=== PATIENT | male | born 1950 | race Caucasian/White ===

== ENCOUNTER 2021-07-27 12:53 | Observation (INO) | payer MEDICARE, SELFPAY ==
[2021-07-27] VITALS (9 sets, daily range): BP systolic 125–189; BP diastolic 67–95; PULSE 51–63; RESP 16–21; TEMP 36.4–37; O2SAT 97–100; BMI 22.3
--- NOTE | 2021-07-27 13:05 | ED_ITS ---
HPI - Chest Pain General: Chief Complaint: Chest Pain Stated Complaint: CHEST PAIN Time Seen by Provider: 07/27/21 13:04 History of Present Illness: Mr. Perea is a 71-year-old gentleman with history of hypertension who presents to the emergency department due to chest discomfort and generalized symptoms. He reports for the past few weeks he has had abdominal pain in the epigastric region associated with nausea and decreased p.o. intake. He has generalized illness which is moderate in intensity. Additionally over the past few days he has had chest discomfort which is left a nterior chest with no radiation to left arm. He is noted to be more weak and clammy than baseline. Denies history of similar frequently. Denies history of cardiac evaluation. Overall the course of symptoms has been worsening. No other specific changes in health, exacerbating, or alleviating factors identified. Onset (ago): day(s) Timing of current episode: episodic, increasing and still present Onset: during rest Pain location: substernal and left chest Pain radiation: left arm Severity: moderate Quality: aching Relieving factors: nothing Exacerbating factors: nothing Associated symptoms: Reports abdominal pain, diaphoresis and nausea Review of Systems General: Reports: 10 or more systems reviewed and unremarkable except in HPI and below Const: Reports: diaphoresis GI: Reports: abdominal pain and nausea PFS ED PFSH: Medical History HTN (hypertension) Surgical History History of appendectomy Social History Smoking and tobacco status: former smoker Physical Exam Const: COMMON NORMALS: alert GENERAL APPEARANCE: cooperative, well developed and ill appearing (somewhat) HENMT: COMMON NORMALS: normocephalic and atraumatic HEAD & SCALP: normocephalic and atraumatic Eye: COMMON NORMALS: conjunctivae normal CONJUNCTIVA: Yes conjunctivae normal SCLERA: sclerae normal Neck/C-Spine: COMMON NORMALS: supple GENERAL: Yes trachea midline Resp: COMMON NORMALS: normal respiratory effort and clear to auscultation bilaterally EFFORT & INSPECTION: Yes able to speak in complete sentences AUSCULTATION: clear to auscultation bilaterally Cardio: COMMON NORMALS: regular rate and regular rhythm RATE: regular rate RHYTHM: regular rhythm GI: COMMON NORMALS: Soft to palpation PALPATION: Yes Soft to palpation, Yes Tenderness to palpation present (GI), No Guarding due to palpation present (GI), No Rigid due to palpation and No Rebound tenderness present PERCUSSION: normal to percussion Extremity: GENERAL: Yes normal exam except as noted and No edema Neuro: COMMON NORMALS: moves all extremities SENSORIUM/ORIENTATION: Yes alert and No Orientation impaired Psych: COMMON NORMALS: mental status grossly normal and Normal thought process present THOUGHT PROCESS: Normal thought process present Course ED course: - Patient was seen and evaluated by me at bedside - Patient placed on cardiac monitors, IV access obtained - Initial evaluation notable for exam as above - Labs and xrays personally interpreted by me. EKGs from 1314 and 1513 personally interpreted by me. Sinus rhythm with no STEMI. - Labs notable for no leukocytosis, normal hemoglobin. Metabolic panel with mild hyponatremia. Delta troponin negative. Viral studies negative. - Imaging notable for no lobar consolidation or pneumothorax. No obvious cause of patient's symptoms identified on CT imaging. - Upon serial reexamination after treatment the patient was similar - Based on patient history, evaluation, and testing as interpreted the most likely cause of the patient's condition is chest pain of uncertain etiology - The results of ED evaluation were discussed with the patient including possible disposition options. Patient is moderate risk by heart score and uncomfortable with discharge and therefore will be admitted with explanation of stress test not occurring until Friday. - Admitting service was contacted and Dr Rutledge with the hospitalist service agreed to admit the patient - Patient was admitted without further deterioration or significant events. Note: Click bubbles or prepopulated davis in note writing are used for assistance with data collection and billing and are inherently more limited than narrative and other text portions of this note. Please use narrative for additional clinical history and defer to narrative/free test for any case of contradictory information. If information appears in only free text or click bubble it should be considered present or absent as reported. Please contact note software writer for clarifications of clinical information or contradictory information. MDM is a brief summary, contradictory or erroneous seeming information should be clarified and full note should be reviewed. Vital Signs: Vital signs: Vital Signs Temperature 98.0 F 07/30/21 00:00 Pulse Rate 58 L 07/30/21 00:00 Respiratory Rate 16 07/30/21 00:00 Blood Pressure 153/78 07/30/21 00:00 Pulse Oximetry 98 07/30/21 00:00 MDM - Chest Pain Medical Decision Making 71-year-old gentleman with no cardiac history presenting with chest pain and associated generalized symptoms. No clear etiology identified on the ED evaluation. Patient moderate risk by heart score and admitted after discussion of possible disposition options for further cardiac testing Medical Records I reviewed the patient's medical records. Lab Data I reviewed the patient's lab results. : 07/29/21 05:00 07/29/21 05:00 Radiology Impressions Chest X-Ray 07/27/21 13:16 IMPRESSION: 1. No pulmonary mass or pneumonia. 2. Curvilinear LEFT apical pleural calcification. Chest/Abdomen/Pelvis CT 07/27/21 14:37 IMPRESSION: 1. No acute pulmonary infiltrates. 2. Several subcentimeter noncalcified pulmonary nodules described above. Recommend 6 month follow-up. 3. Mild diffuse fatty infiltration of the liver. 4. Sigmoid diverticulosis. No evidence of acute diverticulitis. 5. Tiny fat-containing umbilical hernia. 6. No acute findings in the abdomen or pelvis. 7. 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 Laboratory Results WBC 4.0 10^3/uL (4.0-10.0) 07/28/21 05:20 RBC 3.99 10^6/uL (4.1-5.3) L 07/28/21 05:20 Hgb 12.8 g/dL (11.7-16.6) 07/28/21 05:20 Hct 37.9 % (42.0-52.0) L 07/28/21 05:20 MCV 95.0 fl (80-94) H 07/28/21 05:20 MCH 32.1 pg (28.0-34.0) 07/28/21 05:20 MCHC 33.8 g/dL (30.0-36.0) 07/28/21 05:20 RDW 11.8 % (12.1-15.1) L 07/28/21 05:20 Plt Count 165 10^3/cmm (130-400) 07/28/21 05:20 MPV 11.1 fL (7.4-10.4) H 07/28/21 05:20 Neut % (Auto) 46.1 % 07/28/21 05:20 Lymph % (Auto) 35.6 % 07/28/21 05:20 [place] % (Auto) 13.4 % 07/28/21 05:20 Eos % (Auto) 3.7 % 07/28/21 05:20 Baso % (Auto) 1.0 % 07/28/21 05:20 Neut # (Auto) 1.85 10^3/uL (1.8-7.7) 07/28/21 05:20 Lymph # (Auto) 1.4 10^3/uL (0.8-4.8) 07/28/21 05:20 [place] # (Auto) 0.5 10^3/uL (0.2-0.9) 07/28/21 05:20 Eos # (Auto) 0.2 10^3/uL (0.0-0.8) 07/28/21 05:20 Baso # (Auto) 0.0 10^3/uL (0.0-0.1) 07/28/21 05:20 Nucleated RBC % (auto) 0 % 07/28/21 05:20 Nucleated RBCs # 0.0 /100WBC 07/28/21 05:20 PT 13.90 SECONDS (12.1-14.9) 07/27/21 13:45 INR 1.04 (0.8-1.2) 07/27/21 13:45 APTT 25.5 SECONDS (23.9-36.7) 07/27/21 13:45 D-Dimer <= 0.27 ug/mIFEU (0-0.59) 07/27/21 13:45 Sodium 132 mmol/L (136-145) L 07/28/21 05:20 Potassium 3.9 mmol/L (3.5-5.1) 07/28/21 05:20 Chloride 100 mmol/L (98-107) 07/28/21 05:20 Carbon Dioxide 22 mmol/L (22-29) 07/28/21 05:20 Anion Gap 13.9 (5-19) 07/28/21 05:20 BUN 17 mg/dL (8-23) 07/28/21 05:20 Creatinine 0.8 mg/dL (0.7-1.2) 07/28/21 05:20 GFR Calculation Not Reportable 07/28/21 05:20 Glucose 90 mg/dL (65-115) 07/28/21 05:20 Calculated Osmolality 275 mOsm/kg (285-295) L 07/28/21 05:20 Calcium 8.7 mg/dL (8.5-10.5) 07/28/21 05:20 Total Bilirubin 0.5 mg/dL (0.15-1.2) 07/27/21 13:02 AST 15 U/L (0-40) 07/27/21 13:02 ALT 14 U/L (0-41) 07/27/21 13:02 Alkaline Phosphatase 64 IU/L (40-130) 07/27/21 13:02 Troponin T Baseline 10 ng/L (0-15) 07/27/21 13:02 Troponin T 120 Minute 9.56 ng/L (0-15) 07/27/21 15:37 Delta Troponin T -0.44 ABS# (0-10) L 07/27/21 15:37 Troponin T Hi Sens 6Hr 10.41 ng/L (0-15) 07/27/21 19:09 Troponin T Hi Sens 6Hr Delta 0.41 ng/L (0-12) 07/27/21 19:09 NT-Pro-B Natriuret Pep 101 pg/mL (0-125) 07/27/21 13:02 Total Protein 6.8 g/dL (6.6-8.7) 07/27/21 13:02 Albumin 4.2 g/dL (3.5-5.2) 07/27/21 13:02 Globulin 2.6 g/dL (1.3-4.6) 07/27/21 13:02 Triglycerides 84 mg/dL (0-150) 07/28/21 05:20 Cholesterol 163 mg/dL (0-200) 07/28/21 05:20 LDL Cholesterol, Calc 112 mg/dL (50-129) 07/28/21 05:20 HDL Cholesterol 34 mg/dL (60-100) L 07/28/21 05:20 LDL/HDL Ratio 3.29 RATIO (0.00-3.22) H 07/28/21 05:20 Cholesterol/HDL Ratio 4.79 mg/dL (1.0-5.00) 07/28/21 05:20 Lipase 29 U/L (13-60) 07/27/21 13:02 TSH 1.27 uIU/mL (0.27-4.20) 07/28/21 05:20 Urine Color Yellow (Yellow) 07/28/21 09:50 Urine Appearance Clear (CLEAR) 07/28/21 09:50 Urine pH 5 (5-7) 07/28/21 09:50 Ur Specific [place] 1.020 (1.005-1.030) 07/28/21 09:50 Urine Protein Neg (Negative) 07/28/21 09:50 Urine Glucose (UA) Norm (Normal) 07/28/21 09:50 Urine Ketones 1+ (Negative) H 07/28/21 09:50 Urine Blood Neg (Negative) 07/28/21 09:50 Urine Nitrate Negative (Negative) 07/28/21 09:50 Urine Bilirubin Neg (Negative) 07/28/21 09:50 Urine Urobilinogen Norm mg/dL (Negative) 07/28/21 09:50 Ur Leukocyte Esterase Negative (Negative) 07/28/21 09:50 Influenza Type A Ag Negative (Negative) 07/27/21 13:53 Influenza Type B Ag Negative (Negative) 07/27/21 13:53 Discharge Plan Discharge Patient Disposition: Placed in Observation Admit Provider: Cordell Rutledge Clinical Impression: Chest pain Coding Level of Care Code ED Submarine Cable Equipment Technician for Angelo Fwd Exam Comprehensive
--- NOTE | 2021-07-27 13:16 | ECG_ITS ---
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 Measurements Intervals [place] Rate: 49 P: 54 AR: 166 QRS: 64 QRSD: 90 T: 67 QT: 415 QTc: 375 Interpretive Statements SINUS BRADYCARDIA No previous ECG available for comparison Electronically Signed On 07-27-2021 16:01:12 CDT by Don Guillaume M.D. [id number]
--- NOTE | 2021-07-27 13:16 | XR_ITS ---
WS: [id number] PORTABLE CHEST HISTORY: chest pain COMPARISON: None available. Patient slightly rotated to the RIGHT. Lungs are clear and well expanded. No pleural effusion. There is pleural calcification at the LEFT ap ex. Cardiac size: Normal. Mediastinum/Aorta: Normal mediastinum. No osseous abnormality seen. XR/XR chest 1V portable [id number] IMPRESSION: 1. No pulmonary mass or pneumonia. 2. Curvilinear LEFT apical pleural calcification.
[2021-07-27 13:25] LABS: Basophils % 0.6 %; Eosinophils # 0.1 10^3/uL (0.0-0.8); Hematocrit 39.8 % (42.0-52.0); Hemoglobin 13.6 g/dL (11.7-16.6); Lymphocytes # 1.1 10^3/uL (0.8-4.8); Lymphocytes % 23.2 %; Mean Corpuscular HGB Conc 34.2 g/dL (30.0-36.0); Mean Corpuscular Hemoglobin 32.2 pg (28.0-34.0); Mean Corpuscular Volume 94.1 fl (80-94); Monocytes # 0.7 10^3/uL (0.2-0.9); Monocytes % 13.2 %; Neutrophils # 2.98 10^3/uL (1.8-7.7); Neutrophils % 60.8 %; Nucleated Red Blood Cells % 0 %; Platelet Count 199 10^3/cmm (130-400); Red Blood Count 4.23 10^6/uL (4.1-5.3); Red Cell Distribution Width 11.9 % (12.1-15.1); White Blood Count 4.9 10^3/uL (4.0-10.0)
[2021-07-27 13:44] LABS: Troponin(5th) Baseline 10 ng/L (0-15)
[2021-07-27 13:54] LABS: Alanine Aminotransferase 14 U/L (0-41); Albumin Level 4.2 g/dL (3.5-5.2); Alkaline Phosphatase 64 IU/L (40-130); Anion Gap 14.2 (5-19); Aspartate Amino Transferase 15 U/L (0-40); Blood Urea Nitrogen 14 mg/dL (8-23); Calcium 9.3 mg/dL (8.5-10.5); Carbon Dioxide 23 mmol/L (22-29); Chloride 99 mmol/L (98-107); Globulin 2.6 g/dL (1.3-4.6); Glucose 96 mg/dL (65-115); Lipase 29 U/L (13-60); NT Pro B Type Natriuretic Pept 101 pg/mL (0-125); Osmolality Calculated 274 mOsm/kg (285-295); Potassium 4.2 mmol/L (3.5-5.1); Sodium 132 mmol/L (136-145); Total Bilirubin 0.5 mg/dL (0.15-1.2); Total Protein 6.8 g/dL (6.6-8.7)
[2021-07-27 14:22] LABS: Influenza A by IFA Negative (Negative); Influenza B by IFA Negative (Negative)
[2021-07-27 14:31] LABS: INR 1.04 (0.8-1.2)
[2021-07-27 14:32] LABS: Partial Thromboplastin Time 25.5 SECONDS (23.9-36.7)
[2021-07-27 14:35] LABS: D Dimer <= 0.27 ug/mIFEU (0-0.59)
--- NOTE | 2021-07-27 14:37 | CT_ITS ---
WS: [id number] CT CHEST, ABDOMEN, AND PELVIS TECHNIQUE: Contrast-enhanced CT of the chest, abdomen, and pelvis with coronal and sagittal reformatt ed images. CLINICAL INFORMATION: left chest pain, sob, abdominal pain, n/v COMPARISON: None. DLP: 1125.[address] scans at [facility] use at least one of these dose optimization techniques: automated e xposure control; mA and/or kV adjustment per patient size (includes targeted exams where dose is matc hed to clinical indication); or iterative reconstruction. CT CHEST: Moderate chronic emphysematous changes. No acute pulmonary infiltrates. No focal pneumonia or pleural fluid. Fibrosis in the lung apices. RIGHT basilar atelectasis. 2. small hazy noncalcified pulmonary nodules RIGHT upper lobe measuring 4 to 6 mm. Subpleural nodule LEFT lower lobe measuring 5 mm. Additional noncalcified pulmonary nodule LEFT upper lobe measuring 5 mm. Pleural calcification and LEFT lung apex. Normal caliber thoracic aorta. Aortic calcification. Coronary calcification. No mediastinal or hilar lymphadenopathy. No axillary lymphadenopathy. Normal thoracic spine. CT ABDOMEN AND PELVIS: Mild diffuse fatty infiltration of the liver. Normal portal vein and splenic vein. Small RIGHT hepati c cyst. Normal GE junction. Pancreas appears normal. Normal portal vein and splenic vein. Normal sple en. Adrenal glands are normal. Normal renal parenchymal enhancement. No hydronephrosis. Small LEFT re nal cyst lower pole LEFT kidney. Normal caliber abdominal aorta. Moderate aortic calcification. Sigmoid diverticulosis. No evidence of acute diverticulitis. No evidence of high-grade small or large bowel obstruction. Normal Advanced arthritis LEFT hip with subchondral cystic change and qcwm-ya-pthw articulation. CT/CT chest abd pel w con* IMPRESSION: 1. No acute pulmonary infiltrates. 2. Several subcentimeter noncalcified pulmonary nodules described above. Recom mend 6 month follow-up. 3. Mild diffuse fatty infiltration of the liver. 4. Sigmoid diverticulosis. No evidence of acute diverticulitis. 5. Tiny fat-containing umbilical hernia. 6. No acute findings in the abdomen or pelvis. 7. 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
[2021-07-27] MEDS: iohexol 300 mg/mL 100 mL Btl IV (15:07)
--- NOTE | 2021-07-27 15:16 | ECG_ITS ---
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 Measurements Intervals [place] Rate: 55 P: 52 RI: 183 QRS: 66 QRSD: 83 T: 56 QT: 406 QTc: 390 Interpretive Statements SINUS BRADYCARDIA Compared to ECG 07/27/2021 13:14:41 No significant changes Electronically Signed On 07-27-2021 16:05:35 CDT by Don Guillaume M.D. [id number]
[2021-07-27 16:05] LABS: Troponin 5 2HR 9.56 ng/L (0-15)
[2021-07-27 16:18] LABS: Troponin 5 2HR Delta -0.44 ABS# (0-10)
--- NOTE | 2021-07-27 19:16 | ECG_ITS ---
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 Measurements Intervals [place] Rate: 54 P: 34 MD: 174 QRS: 49 QRSD: 89 T: 46 QT: 413 QTc: 391 Interpretive Statements SINUS BRADYCARDIA Compared to ECG 07/27/2021 15:13:57 No significant changes Electronically Signed On 07-27-2021 22:42:09 CDT by Don Guillaume M.D. [id number]
[2021-07-27] MEDS: sodium chloride 0.9% 1,000 ML 75 ML IV (19:26)
[2021-07-27] MEDS: enoxaparin 40 mg/0.4 mL Syringe SUBCUT (19:26)
[2021-07-27] MEDS: acetaminophen 325 mg Tablet 650 MG PO (19:33)
[2021-07-27 19:42] LABS: Troponin 5 6HR 10.41 ng/L (0-15)
[2021-07-27 19:46] LABS: Troponin 5 6HR Delta 0.41 ng/L (0-12)
[2021-07-27] MEDS: pantoprazole 40 mg SDV IVP (19:58)
--- NOTE | 2021-07-27 20:28 | PM.HP ---
Providers/Chief Complaint Admitting Physician: Cordell Rutledge MD Chief Complaint: CHEST PAIN History of Present Illness Vikash Perea is a 71 year old male with past medical history of hypertension came in with chief complaint of chest discomfort and generalized symptoms.He reports for the past few weeks he has had abdominal pain in the epigastric region associated with nausea and decreased p.o. intake.? He has generalized illness which is moderate in intensity.? Additionally over the past few days he has had chest discomfort which is left anterior chest with no radiation to left arm.? He is noted to be more weak and clammy than baseline.? Denies history of similar frequently.? Denies history of cardiac evaluation. He is also complaining of lately dark stool, abdominal bloating, increased urinary frequency. Upon arrival in the ER he was worked up for above-mentioned complaint: Pertinent imaging studies: C. T chest abd pel w con: 1.? No acute pulmonary infiltrates. 2.? Several subcentimeter noncalcified pulmonary nodules described above. Recommend 6 month follow-up. 3.? Mild diffuse fatty infiltration of the liver. 4.? Sigmoid diverticulosis. No evidence of acute diverticulitis. 5.? Tiny fat-containing umbilical hernia. 6.? No acute findings in the abdomen or pelvis. 7.? 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 EKG: Sinus bradycardia #Pertinent labs: WBC 4.9, H&H 13.6 / 39.8 , PLT : 199 , Serum sodium 132 serum potassium 4.2, BUN and serum creatinine 14 and 0.9 , lipase 29 Troponin trend:10,9,10, proBNP 101 , D-dimer negative Review of Systems General: Reports: 10 or more systems reviewed and unremarkable except in HPI and below Const: Denies: fever(s), chills, body aches, change in appetite or diaphoresis Card: Denies: edema, swelling of feet/ankles, dyspnea on exertion, orthopnea or leg pain with exertion Resp: Denies: dyspnea, productive cough, wheezing or pain on inspiration GI: Denies: nausea, vomiting, diarrhea or constipation : Denies: flank pain Musc: Denies: extremity pain or extremity swelling Neuro: Denies: headache(s), difficulty walking or confusion Medications/Allergies Home Medications Medication Instructions Recorded Confirmed Last Taken Type carvedilol 25 mg tablet (Coreg) 25 mg PO BID 04/12/1007/27/21 07/27/21 History gabapentin 300 mg capsule 300 mg PO TID 07/27/21 07/27/21 07/26/21 History glucosamine-chondroitin 250 mg-200 2 tab PO TID 07/27/21 07/27/21 07/26/21 History mg tablet (Osteo Bi-Flex) meloxicam 7.5 mg tablet 7.5 mg PO DAILY 07/27/21 07/27/21 07/26/21 History vrizdrkgcelw-vjx-cumbl acid-vit 1 tab PO DAILY 07/27/21 07/27/21 07/26/21 History K-lycop 400 mcg-20 mcg-370 mcg tablet (Men's 50 Plus Daily Formula) sertraline 100 mg tablet 100 mg PO DAILY 07/27/21 07/27/21 07/26/21 History Allergies Allergy/AdvReac Type Severity Reaction Status Date / Time No Known Allergies Allergy Verified 07/27/21 14:10 PFSH Acute PFSH: Medical History HTN (hypertension) Surgical History History of appendectomy Social History Smoking and tobacco status: former smoker Vitals/I&O/Wt Last Vital Signs Temp 97.5 F L 07/27/21 20:00 Pulse 56 L 07/27/21 20:00 Resp 18 07/27/21 20:00 BP 169/83 07/27/21 20:00 Pulse Ox 97 07/27/21 20:00 Weight last 48 hrs Weight 72.575 kg Physical Exam Const: COMMON NORMALS: patient oriented x3 HENMT: COMMON NORMALS: normocephalic and atraumatic HEAD & SCALP: normocephalic and atraumatic Eye: GENERAL EYE: appearance normal, both eyes and all related structures Chest: COMMONS NORMALS: normal inspection of the chest and normal palpation of entire chest wall CHEST: Yes Symmetrical chest wall rise Resp: COMMON NORMALS: normal respiratory effort, No retractions, No use of accessory muscles and clear to auscultation bilaterally EFFORT & INSPECTION: Yes symmetric chest movement AUSCULTATION: clear to auscultation bilaterally Cardio: COMMON NORMALS: regular rate, regular rhythm, S1 normal heart sound present, S2 normal heart sound present, No gallops present (Cardio), No murmurs present (Cardio), No rub (Cardio) and Peripheral pulses 2+ throughout RATE: regular rate RHYTHM: regular rhythm HEART SOUNDS: S1 normal heart sound present and S2 normal heart sound present PERIPHERAL PULSES: Peripheral pulses 2+ throughout GI: COMMON NORMALS: Normal to inspection, nondistended, normoactive bowel sounds present, No hepatosplenomegaly present and no masses AUSCULTATION: Yes normoactive bowel sounds PALPATION: Yes No hepatosplenomegaly present RECTAL EXAM: Yes deferred OTHER: Hypogastric tenderness, no rebound tenderness no guarding no rigidity Extremity: COMMON NORMALS: no clubbing, cyanosis or edema and no pedal edema Neuro: COMMON NORMALS: patient oriented x3 Data : 07/28/21 05:20 07/28/21 05:20 A&P Assessment and plan (1) Chest pain: Status: Acute (2) HTN (hypertension): Status: Acute Plan Assessment: #Chest pain: Likely noncardiac chest pain: Patient description of chest pain, is not typical for cardiac chest pain Troponin trend has been negative, EKG has showed sinus bradycardia, 2D echo: Telemetry monitoring Sublingual nitro as needed #Possible gastritis: Epigastric abdominal pain, dark stool, nausea, bloating. Continue Protonix 40 IV daily for now Maalox #Sinus bradycardia: EKG is showing sinus bradycardia Continue telemetry monitoring #Possible UTI: Patient has hypogastric tenderness, increased urinary frequency. Follow urinalysis ceftriaxone 1 g IV daily #Hypertension #CODE STATUS: Full code #DVT PPX: On Lovenox Attestations Medical Necessity Statement*: Patient needs to be in hospital for chest pain evaluation and work-up. Time Spent in Patient Care: Greater than 35 minutes (>than 50% of time spent in counselling and/or direct pt care on unit). Coding Level of Care Code Acute Teacher Physically Impaired for g Fwd Exam Comprehensive Diagnoses Chest pain R07.9 HTN (hypertension) I10
[2021-07-27] MEDS: cefTRIAXone 1,000 MG in sodium chloride 0.9% (plus) 50 ML 100 MG IV (21:24)
[2021-07-28] VITALS (9 sets, daily range): BP systolic 127–182; BP diastolic 68–90; PULSE 54–67; RESP 16–18; TEMP 36.5–37.1; O2SAT 95–98
--- NOTE | 2021-07-28 00:15 | USCV_ITS ---
Transthoracic Echo Vikash Perea Age: 71 Gender: M : 1950 Exam Date: 07/28/2021 01:39 Ordering Phys: Cordell Rutledge MD Technologist: Emerson Willis Exam Location[place] [facility] [place]ication: chest pain BP: 127 / 68 HR: 54 Rhythm: Sinus Technical Quality: Adequate MEASUREMENTS (Male / Female) Normal Values 2D ECHO LV Diastolic Diameter PLAX 2.3 cm 4.2 - 5.9 / 3.9 - 5.3 cm LV Systolic Diameter PLAX 1.4 cm IVS Diastolic Thickness 2.6 cm 0.6 - 1.0 / 0.6 - 0.9 cm IVS Systolic Thickness 2.2 cm LVPW Diastolic Thickness 1.1 cm 0.6 - 1.0 / 0.6 - 0.9 cm LVPW Systolic Thickness 1.8 cm LVOT Diameter 2.0 cm LV Ejection Fraction 2D Teich 69.9 % LV Ejection Fraction MOD 2C 67.7 % LV Ejection Fraction 2C AL 68.6 % LA Diameter 3.5 cm LA Width 3.9 cm LA Height 4.2 cm RA Width 3.1 cm RA Height 4.7 cm Aorta at Sinotubular Diameter 2.1 cm M-MODE Aortic Annulus Diameter 3.0 cm LA Ao Ratio MM 1.3 MV E Point Septal Separation 0.9 cm DOPPLER AV Peak Velocity 146.5 cm/s LVOT Peak Velocity 102.0 cm/s AV Area Cont Eq vti 2.6 cm squared AV Area Cont Eq pk 2.2 cm squared MV Area PHT 3.1 cm squared Mitral E to A Ratio 1.2 MV E' Velocity 42.6 cm/s Mitral E to MV E' Ratio 10.7 Mitral E to LV E' Lateral Ratio 9.3 Mitral E to LV E' Septal Ratio 12.7 Right Atrial Pressure 3.0 mmHg PV Peak Velocity 92.0 cm/s RV Acceleration Time 0.1 s RV Ejection Time 0.4 s RV AcT/ET 0.4 FINDINGS Left Ventricle Normal left ventricular size and systolic function, EF 68 %. Mild left ventricular hypertrophy. No regional wall motion abnormalities. Grade I/IV diastolic dysfunction (abnormal relaxation filling pattern), normal to mildly elevated filling pressures. Right Ventricle The right ventricle is normal in size and function. Right Atrium The right atrium is normal in size. Left Atrium Upper limit of normal size Mitral Valve Mild mitral annular calcification. Aortic Valve Thickened aortic valve. Tricuspid Valve No gross abnormalities noted Pulmonic Valve Pulmonic valve not well visualized. Pericardium Normal pericardium without effusion. Aorta Normal ascending aorta dimension. CONCLUSIONS Normal left ventricular size and systolic function, EF 68 %. Mild left ventricular hypertrophy. No regional wall motion abnormalities. Grade I/IV diastolic dysfunction (abnormal relaxation filling pattern), normal to mildly elevated filling pressures. Left atrium, upper limit of normal size Mild mitral annular calcification. Thickened aortic valve. There is no pericardial effusion. No previous study is available for comparison. Dr Xochilt Griffith MD FACC (Electronically Signed) Final Date: 28 July 2021 13:39 S
[2021-07-28 05:48] LABS: Eosinophils # 0.2 10^3/uL (0.0-0.8); Eosinophils % 3.7 %; Hematocrit 37.9 % (42.0-52.0); Hemoglobin 12.8 g/dL (11.7-16.6); Lymphocytes # 1.4 10^3/uL (0.8-4.8); Lymphocytes % 35.6 %; Mean Corpuscular HGB Conc 33.8 g/dL (30.0-36.0); Mean Corpuscular Hemoglobin 32.1 pg (28.0-34.0); Mean Platelet Volume 11.1 fL (7.4-10.4); Monocytes # 0.5 10^3/uL (0.2-0.9); Monocytes % 13.4 %; Neutrophils # 1.85 10^3/uL (1.8-7.7); Neutrophils % 46.1 %; Nucleated Red Blood Cells % 0 %; Platelet Count 165 10^3/cmm (130-400); Red Blood Count 3.99 10^6/uL (4.1-5.3); Red Cell Distribution Width 11.8 % (12.1-15.1)
[2021-07-28 06:06] LABS: Chol HDL Ratio 4.79 mg/dL (1.0-5.00); Cholesterol 163 mg/dL (0-200); HDL Cholesterol 34 mg/dL (60-100); LDL Cholesterol Calculated 112 mg/dL (50-129); LDL HDL Ratio 3.29 RATIO (0.00-3.22); Triglycerides 84 mg/dL (0-150)
[2021-07-28 06:16] LABS: Anion Gap 13.9 (5-19); Blood Urea Nitrogen 17 mg/dL (8-23); Calcium 8.7 mg/dL (8.5-10.5); Carbon Dioxide 22 mmol/L (22-29); Chloride 100 mmol/L (98-107); Glucose 90 mg/dL (65-115); Osmolality Calculated 275 mOsm/kg (285-295); Potassium 3.9 mmol/L (3.5-5.1); Sodium 132 mmol/L (136-145); Thyroid Stimulating Hormone 1.27 uIU/mL (0.27-4.20)
[2021-07-28] MEDS: sodium chloride 0.9% 1,000 ML 75 ML IV (09:43)
[2021-07-28 10:39] LABS: Add Urine Microscopic? NO; Charge for UA Resulting for Rev
[2021-07-28 10:49] LABS: Bilirubin Urine Neg (Negative); Blood Urine Neg (Negative); Glucose Urine UA Norm (Normal); Ketones Urine 1+ (Negative); Leukocyte Esterase Urine Negative (Negative); Nitrate Urine Negative (Negative); Protein Urine Neg (Negative); Urine Appearance Clear (CLEAR); Urine Color Yellow (Yellow); Urobilinogen Urine Norm (Negative); pH Urine 5 (5-7)
[2021-07-28] MEDS: amlodipine 5 mg Tablet PO (11:37)
--- NOTE | 2021-07-28 14:40 | P.PN_ITS ---
Subjective Subjective: Patient had another episode of chest pain left-sided, sharp lasted for about 30 seconds, resolved spontaneously. Continue to be in sinus bradycardia on telemetry, blood pressure is elevated: Will initiate amlodipine 5 mg p.o. daily. Medications: Medication Review Details: Generic Name Dose Route Start Last Admin Trade Name Freq PRN Reason Stop Dose Admin Acetaminophen 650 mg 07/27/21 18:33 07/27/21 19:33 Acetaminophen 32 5 Mg Tablet PO 650 mg Q6H PRN Administration Mild/Mod Pain Or Temp >/= 101 Amlodipine Besylat e 5 mg 07/28/21 10:45 07/28/21 11:37 Amlodipine 5 Mg Tablet PO 5 mg DAILY RONY Administration Enoxaparin Sodium 40 mg 07/27/21 18:45 07/27/21 19:26 Enoxaparin 40 Mg /0.4 Ml Syringe SUBCUT 40 mg Q24H RONY Administration Sodium Chloride 1,000 mls @ 75 ml s/hr 07/27/21 18:45 07/28/21 09:43 Sodium Chloride 0.9% IV 75 mls/hr .[id number] RONY Administration Ceftriaxone Sodium 1,000 mg/ 50 mls @ 100 mls/ hr 07/27/21 21:00 07/27/21 22:15 Sodium Chloride IV Infused Q24H RONY Infusion Protocol Pantoprazole Sodiu m 40 mg 07/27/21 18:45 07/27/21 19:58 Pantoprazole 40 Mg Sdv IVP 40 mg Q24H RONY Administration Vitals/I&O/Wt Last Vital Signs Temp 98.0 F 07/28/21 11:33 Pulse 57 L 07/28/21 11:33 Resp 18 07/28/21 11:33 BP 182/84 07/28/21 11:33 Pulse Ox 97 07/28/21 11:33 07/27/21 07/28/21 07/28/21 22:59 06:59 14:59 Intake Total 530 / 530 100 / 630 1240 / 1240 Output Total 0 / 0 500 / 500 Balance 530 / 530 100 / 630 740 / 740 Weight last 48 hrs Weight 72.575 kg Physical Exam Const: COMMON NORMALS: patient oriented x3 HENMT: COMMON NORMALS: normocephalic and atraumatic HEAD & SCALP: normocephalic and atraumatic Eye: GENERAL EYE: appearance normal, both eyes and all related structures Chest: COMMONS NORMALS: normal inspection of the chest and normal palpation of entire chest wall CHEST: Yes Symmetrical chest wall rise Resp: COMMON NORMALS: normal respiratory effort, No retractions, No use of accessory muscles and clear to auscultation bilaterally EFFORT & INSPECTION: Yes symmetric chest movement AUSCULTATION: clear to auscultation bilaterally Cardio: COMMON NORMALS: regular rate, regular rhythm, S1 normal heart sound present, S2 normal heart sound present, No gallops present (Cardio), No murmurs present (Cardio), No rub (Cardio) and Peripheral pulses 2+ throughout RATE: regular rate RHYTHM: regular rhythm HEART SOUNDS: S1 normal heart sound present and S2 normal heart sound present PERIPHERAL PULSES: Peripheral pulses 2+ throughout GI: COMMON NORMALS: Normal to inspection, nondistended, normoactive bowel sounds present, No hepatosplenomegaly present and no masses AUSCULTATION: Yes normoactive bowel sounds PALPATION: Yes No hepatosplenomegaly present RECTAL EXAM: Yes deferred OTHER: Hypogastric tenderness, no rebound tenderness no guarding no rigidity Extremity: COMMON NORMALS: no clubbing, cyanosis or edema and no pedal edema Neuro: COMMON NORMALS: patient oriented x3 Data : 07/28/21 05:20 07/28/21 05:20 A&P Assessment and plan (1) Chest pain: Status: Acute (2) HTN (hypertension): Status: Acute Plan Assessment: #Chest pain: Likely noncardiac chest pain: Patient description of chest pain, is not typical for cardiac chest pain Troponin trend has been negative, EKG has showed sinus bradycardia, 2D echo: Stress test on Friday Telemetry monitoring Sublingual nitro as needed #Possible gastritis/PUD Epigastric abdominal pain, dark stool, nausea, bloating. FOBT Continue Protonix 40 IV daily for now Maalox Patient will need outpatient EGD plus colonoscopy.Patient is also due for age- appropriate colonoscopy screening. #Sinus bradycardia: EKG is showing sinus bradycardia Continue telemetry monitoring #Hypertension: Patient is on carvedilol at home, will continue to hold carvedilol as he has sinus bradycardia. Started amlodipine 5 mg p.o. daily #CODE STATUS: Full code #DVT PPX: On Lovenox Attestations Medical Necessity Statement*: Patient is to be in hospital for chest pain management and work-up, awaiting stress test on Friday. Time Spent in Patient Care: Greater than 35 minutes (>than 50% of time spent in counselling and/or direct pt care on unit) . Coding Level of Care Code Acute Occupational Psychologist for Angelo Gorman Diagnoses Chest pain R07.9 HTN (hypertension) I10
[2021-07-28] MEDS: pantoprazole 40 mg SDV IVP (18:08)
[2021-07-28] MEDS: enoxaparin 40 mg/0.4 mL Syringe SUBCUT (18:08)
[2021-07-29] MEDS: sodium chloride 0.9% 1,000 ML 75 ML IV (03:16)
[2021-07-29 04:00] VITALS: BP 166/83; PULSE 61; RESP 16; TEMP 36.9; O2SAT 96
[2021-07-29 05:33] LABS: Basophils % 0.9 %; Eosinophils # 0.1 10^3/uL (0.0-0.8); Eosinophils % 2.8 %; Hematocrit 40.3 % (42.0-52.0); Hemoglobin 13.5 g/dL (11.7-16.6); Lymphocytes # 1.4 10^3/uL (0.8-4.8); Lymphocytes % 32.9 %; Mean Corpuscular HGB Conc 33.5 g/dL (30.0-36.0); Mean Corpuscular Hemoglobin 31.9 pg (28.0-34.0); Mean Corpuscular Volume 95.3 fl (80-94); Mean Platelet Volume 10.7 fL (7.4-10.4); Monocytes # 0.6 10^3/uL (0.2-0.9); Monocytes % 13.6 %; Neutrophils # 2.11 10^3/uL (1.8-7.7); Neutrophils % 49.8 %; Nucleated Red Blood Cells % 0 %; Platelet Count 165 10^3/cmm (130-400); Red Blood Count 4.23 10^6/uL (4.1-5.3); Red Cell Distribution Width 11.7 % (12.1-15.1); White Blood Count 4.3 10^3/uL (4.0-10.0)
[2021-07-29 05:37] VITALS: PULSE 54
[2021-07-29 06:02] LABS: Anion Gap 13.6 (5-19); Blood Urea Nitrogen 10 mg/dL (8-23); Carbon Dioxide 24 mmol/L (22-29); Chloride 101 mmol/L (98-107); Glucose 102 mg/dL (65-115); Osmolality Calculated 279 mOsm/kg (285-295); Potassium 3.6 mmol/L (3.5-5.1); Sodium 135 mmol/L (136-145)
[2021-07-29 07:56] VITALS: BP 166/84; PULSE 56; RESP 12; TEMP 37.1; O2SAT 97
[2021-07-29] MEDS: amlodipine 5 mg Tablet PO ×2 (08:29→17:12)
--- NOTE | 2021-07-29 13:11 | ECG_ITS ---
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 Interpretive Statements NAME OF STUDY: LEXISCAN SESTAMIBI STRESS TEST INDICATION: [Chest Pain] Procedure: At the baseline, the blood pressure was 133/81 mmHg with a heart rate of 56 bpm. The electrocardiogram showed sinus bradycardia, normal axis with normal ST and T's. The Lexiscan was infused over a period of 20 seconds. A total of 0.4 mg of Lexiscan was infused. The stress phase was continued for a total of 5 minutes. Heart rate was at the end of stress phase was 47 bpm and a blood pressure of 108/59 mmHg. The EKG at the peak infusion revealed since normal sinus rhythm with no significant ST-T wave changes. Sestamibi was injected 20 seconds after the Lexiscan infusion. Blood pressure at the end of recovery phase was 116/68 mmHg with a heart rate of 61bpm. Conclusion: 1. Normal EKG response to Lexiscan infusion 2. No Lexiscan induced chest pain or cardiac arrhythmia. 3. Normal blood pressure and heart rate response. 4. Sestamibi/sestamibi perfusion scan pending; see separate report. Electronically Signed On 09-02-2021 21:06:08 CDT by Don Guillaume M.D. [id number]
--- NOTE | 2021-07-29 13:11 | P.PN_ITS ---
Subjective Subjective: Patient denies any similar chest pain overnight , though he continues to complain of some lower abdominal pain. No other acute events. Medications: Medication Review Details: Generic Name Dose Route Start Last Admin Trade Name Maki PRN Reason Stop Dose Admin Acetaminophen 650 mg 07/27/21 18:33 07/27/21 19:33 Acetaminophen 32 5 Mg Tablet PO 650 mg Q6H PRN Administration Mild/Mod Pain Or Temp >/= 101 Amlodipine Besylat e 5 mg 07/28/21 10:45 07/28/21 11:37 Amlodipine 5 Mg Tablet PO 5 mg DAILY RONY Administration Enoxaparin Sodium 40 mg 07/27/21 18:45 07/27/21 19:26 Enoxaparin 40 Mg /0.4 Ml Syringe SUBCUT 40 mg Q24H RONY Administration Sodium Chloride 1,000 mls @ 75 ml s/hr 07/27/21 18:45 07/28/21 09:43 Sodium Chloride 0.9% IV 75 mls/hr .[id number] RONY Administration Ceftriaxone Sodium 1,000 mg/ 50 mls @ 100 mls/ hr 07/27/21 21:00 07/27/21 22:15 Sodium Chloride IV Infused Q24H RONY Infusion Protocol Pantoprazole Sodiu m 40 mg 07/27/21 18:45 07/27/21 19:58 Pantoprazole 40 Mg Sdv IVP 40 mg Q24H RONY Administration Vitals/I&O/Wt Last Vital Signs Temp 98.7 F 07/29/21 07:56 Pulse 56 L 07/29/21 07:56 Resp 12 07/29/21 07:56 BP 166/84 07/29/21 07:56 Pulse Ox 97 07/29/21 07:56 07/28/21 07/29/21 07/29/21 22:59 06:59 14:59 Intake Total 480 / 1720 1000 / 2720 Balance 480 / 1220 1000 / 2220 Physical Exam Const: COMMON NORMALS: patient oriented x3 HENMT: COMMON NORMALS: normocephalic and atraumatic HEAD & SCALP: normocephalic and atraumatic Eye: GENERAL EYE: appearance normal, both eyes and all related structures Chest: COMMONS NORMALS: normal inspection of the chest and normal palpation of entire chest wall CHEST: Yes Symmetrical chest wall rise Resp: COMMON NORMALS: normal respiratory effort, No retractions, No use of accessory muscles and clear to auscultation bilaterally EFFORT & INSPECTION: Yes symmetric chest movement AUSCULTATION: clear to auscultation bilaterally Cardio: COMMON NORMALS: regular rate, regular rhythm, S1 normal heart sound present, S2 normal heart sound present, No gallops present (Cardio), No murmurs present (Cardio), No rub (Cardio) and Peripheral pulses 2+ throughout RATE: regular rate RHYTHM: regular rhythm HEART SOUNDS: S1 normal heart sound present and S2 normal heart sound present PERIPHERAL PULSES: Peripheral pulses 2+ throughout GI: COMMON NORMALS: Normal to inspection, nondistended, normoactive bowel sounds present, No hepatosplenomegaly present and no masses AUSCULTATION: Yes normoactive bowel sounds PALPATION: Yes No hepatosplenomegaly present RECTAL EXAM: Yes deferred OTHER: Hypogastric tenderness, no rebound tenderness no guarding no rigidity Extremity: COMMON NORMALS: no clubbing, cyanosis or edema and no pedal edema Neuro: COMMON NORMALS: patient oriented x3 Data : 07/29/21 05:00 07/29/21 05:00 A&P Assessment and plan (1) Chest pain: Status: Acute (2) HTN (hypertension): Status: Acute Plan Assessment: #Chest pain: Likely noncardiac chest pain: Patient description of chest pain, is not typical for cardiac chest pain Troponin trend has been negative, EKG has showed sinus bradycardia, 2D echo:Normal left ventricular size and systolic function, EF 68 %. ?Mild left ventricular hypertrophy. No regional wall motion ?abnormalities. Grade I/IV diastolic dysfunction (abnormal ?relaxation filling pattern), normal to mildly elevated filling ?pressures. Left atrium, upper limit of normal size Mild mitral annular calcification. Thickened aortic valve. There is no pericardial effusion. Stress test on Friday Telemetry monitoring Sublingual nitro as needed #Possible gastritis/PUD Epigastric abdominal pain, dark stool, nausea, bloating. FOBT Stool H. pylori antigen Continue Protonix 40 IV daily for now Maalox Patient will need outpatient EGD plus colonoscopy.Patient is also due for age- appropriate colonoscopy screening. #Sinus bradycardia: EKG is showing sinus bradycardia Continue telemetry monitoring #Hypertension: Patient is on carvedilol at home, will continue to hold carvedilol as he has sinus bradycardia. Amlodipine 10 mg p.o. daily #CODE STATUS: Full code #DVT PPX: On Lovenox Attestations Medical Necessity Statement*: Patient is to be in hospital for management of chest pain currently awaiting stress test in the morning Time Spent in Patient Care: 16 - 35 minutes (>than 50% of time spent in counselling and/or direct pt care on unit) . Coding Level of Care Code Acute Employee Relations Administrator for Angelo Gorman Diagnoses Chest pain R07.9 HTN (hypertension) I10
[2021-07-29 15:56] VITALS: BP 181/97; PULSE 66; O2SAT 96
[2021-07-29] MEDS: pantoprazole 40 mg SDV IVP (17:12)
[2021-07-29] MEDS: enoxaparin 40 mg/0.4 mL Syringe SUBCUT (17:12)
[2021-07-29 20:00] VITALS: BP 156/87; PULSE 56; RESP 16; TEMP 36.8; O2SAT 97
[2021-07-29 21:44] VITALS: PULSE 83
[2021-07-30] VITALS: BP 153/78; PULSE 58; RESP 16; TEMP 36.7; O2SAT 98
[2021-07-30 04:00] VITALS: BP 146/81; PULSE 57; RESP 17; TEMP 36.8; O2SAT 97
[2021-07-30 05:33] LABS: Blood Urea Nitrogen 13 mg/dL (8-23); Calcium 9.5 mg/dL (8.5-10.5); Carbon Dioxide 23 mmol/L (22-29); Chloride 97 mmol/L (98-107); Glucose 103 mg/dL (65-115); Osmolality Calculated 272 mOsm/kg (285-295); Sodium 131 mmol/L (136-145)
[2021-07-30 05:37] VITALS: PULSE 65
[2021-07-30 05:44] LABS: Anion Gap 14.6 (5-19); Potassium 3.6 mmol/L (3.5-5.1)
--- NOTE | 2021-07-30 06:19 | PC.NURSE ---
PATIENT ENCOURAGED TO GET UP TO CHAIR FOR MEAL.
[2021-07-30 06:48] LABS: Basophils % 0.8 %; Eosinophils # 0.2 10^3/uL (0.0-0.8); Eosinophils % 3.6 %; Hematocrit 40.5 % (42.0-52.0); Lymphocytes # 1.6 10^3/uL (0.8-4.8); Lymphocytes % 33.3 %; Mean Corpuscular HGB Conc 34.6 g/dL (30.0-36.0); Mean Corpuscular Hemoglobin 31.8 pg (28.0-34.0); Mean Platelet Volume 11.3 fL (7.4-10.4); Monocytes # 0.5 10^3/uL (0.2-0.9); Monocytes % 11.4 %; Neutrophils # 2.39 10^3/uL (1.8-7.7); Neutrophils % 50.7 %; Nucleated Red Blood Cells % 0 %; Platelet Count 207 10^3/cmm (130-400); Red Cell Distribution Width 11.5 % (12.1-15.1); White Blood Count 4.7 10^3/uL (4.0-10.0)
[2021-07-30 07:20] VITALS: BP 130/67; PULSE 62; RESP 17; TEMP 36.9; O2SAT 94
[2021-07-30] MEDS: regadenoson 0.4 Mg/5 ml Syringe IVP (08:10)
[2021-07-30] MEDS: aminophylline 25 mg/mL SDV 10 mL IVP (08:14)
[2021-07-30 08:19] VITALS: BP 116/68; PULSE 60
--- NOTE | 2021-07-30 10:39 | PC.CHAP ---
Pastoral Care Encounter/Spiritual Assessment Type of Contact [] Declined science tutor visit [] Patient/Family/Request visit [] Outpatient visit [] Follow-up visit [] Physician referral [] Code/Alert [x] Routine visit [] Staff referral [] Actively dying [] Patient sleeping [] Family support [] [] Out of room [] Palliative care [] [] Receiving care in room [] Pre-surgical visit [] Trauma [] Long length of stay [] ICU visit [] Other: Relational/Emotional Strength [x] Patient feels connected with others/family/visitors/staff [] Distress [] Loneliness/isolation [] Abandonment Spirituality of Patient [x] Person of Ghazala [x] Attends Pentecostal of their [place]azala [x] Believes in Prayer [] Reads Bible or Baptist materials [] There are Spiritual issues to be addressed Senior Compensation Consultant Interventions [x] Prayer [x] Active listening [] Non-anxious presence [] Spiritual/emotional support [] Crisis/trauma care [x] Spiritual counseling [] Bereavement support [] Provided bereavement packet [] Provided Bible/devotional materials [] Provided toy/stuffed animal, coloring book to patient or family member [] Provided Communion [] Anointing/[place] [] Salvation [x] Completed spiritual assessment [] Other: Impact on Illness or Injury [] Angry [] Fearful [] Anxious [] Often cries [] Exhaustion [] Unable to work [] Unable to attend sikhism [] Unable to walk/stand [] Unable to read [] Unable to drive [] Unable to eat/drink [] Unable to sleep [] Unable to be with family [] Patient intubated [] Other: Summary Time spent with patient 10p min
[2021-07-30 11:16] VITALS: BP 150/69; PULSE 74; RESP 17; TEMP 37; O2SAT 91
--- NOTE | 2021-07-30 12:24 | PM.DCS ---
Discharge Providers Date of Admission: 07/28/21 14:47 Date of Discharge: July 30, 2021 Attending Provider at Admission: Cordell Rutledge MD Attending Provider at Discharge: Cordell Rutledge MD Diagnoses at Discharge Discharge Diagnosis (1) Chest pain: (2) HTN (hypertension): Reason for Visit Reason for Visit: CHEST PAIN Hospital Course Hospital Course HPI: Vikash Perea is a 71 year old male with past medical history of hypertension came in with chief complaint of chest discomfort and generalized symptoms.He reports for the past few weeks he has had abdominal pain in the epigastric region associated with nausea and decreased p.o. intake.? He has generalized illness which is moderate in intensity.? Additionally over the past few days he has had chest discomfort which is left anterior chest with no radiation to left arm.? He is noted to be more weak and clammy than baseline.? Denies history of similar frequently.? Denies history of cardiac evaluation.? He is also complaining of lately dark stool, abdominal bloating, increased urinary frequency. Upon arrival in the ER he was worked up for above-mentioned complaint: Pertinent imaging studies: C. T chest abd pel w con: 1.? No acute pulmonary infiltrates. 2.? Several subcentimeter noncalcified pulmonary nodules described above. Recommend 6 month follow-up. 3.? Mild diffuse fatty infiltration of the liver. 4.? Sigmoid diverticulosis. No evidence of acute diverticulitis. 5.? Tiny fat-containing umbilical hernia. 6.? No acute findings in the abdomen or pelvis. 7.? 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 EKG: Sinus bradycardia #Pertinent labs: WBC 4.9, H&H 13.6 /? 39.8 , PLT : 199 , Serum sodium 132 serum potassium 4.2, BUN and serum creatinine 14 and 0.9 , lipase 29 Troponin trend:10,9,10, proBNP 101? , D-dimer negative Hospital course: He was admitted for the evaluation and work-up of chest pain: Likely noncardiac chest pain possibly 2/2 gastritis: Troponin trend was negative EKG showed sinus bradycardia, no acute ST-T wave changes. 2D echo: Normal left ventricular size and systolic function, EF 68 %. ?Mild left ventricular hypertrophy. No regional wall motion ?abnormalities. Grade I/IV diastolic dysfunction (abnormal ?relaxation filling pattern), normal to mildly elevated filling pressures. Left atrium, upper limit of normal size Mild mitral annular calcification. Thickened aortic valve. There is no pericardial effusion. Nuclear stress test: Normal myocardial perfusion imaging with no evidence of ischemia LV systolic function is normal. Patient was complaining of dark stool, epigastric abdominal discomfort likely has gastritis, giving rise to chest discomfort he was started on Protonix, H&H were stable during the hospital, he has been asked to follow up as an outpatient with surgery for EGD and colonoscopy. He is due for age-appropriate colonoscopy screening.For history of hypertension he was started amlodipine 10 mg p.o. daily for better blood pressure control, dose of carvedilol was decreased to 6.25 twice daily from 25 mg twice daily as his heart rate was in the mid 50s to 60s throughout the hospital stay. At the time of discharge patient was hemodynamically stable, he is being discharged in stable condition to home and will follow with his primary care physician as an outpatient. Physical Exam Const: COMMON NORMALS: patient oriented x3 HENMT: COMMON NORMALS: normocephalic and atraumatic HEAD & SCALP: normocephalic and atraumatic Eye: GENERAL EYE: appearance normal, both eyes and all related structures Chest: COMMONS NORMALS: normal inspection of the chest and normal palpation of entire chest wall CHEST: Yes Symmetrical chest wall rise Resp: COMMON NORMALS: normal respiratory effort, No retractions, No use of accessory muscles and clear to auscultation bilaterally EFFORT & INSPECTION: Yes symmetric chest movement AUSCULTATION: clear to auscultation bilaterally Cardio: COMMON NORMALS: regular rate, regular rhythm, S1 normal heart sound present, S2 normal heart sound present, No gallops present (Cardio), No murmurs present (Cardio), No rub (Cardio) and Peripheral pulses 2+ throughout RATE: regular rate RHYTHM: regular rhythm HEART SOUNDS: S1 normal heart sound present and S2 normal heart sound present PERIPHERAL PULSES: Peripheral pulses 2+ throughout GI: COMMON NORMALS: Normal to inspection, nondistended, normoactive bowel sounds present, No hepatosplenomegaly present and no masses AUSCULTATION: Yes normoactive bowel sounds PALPATION: Yes No hepatosplenomegaly present RECTAL EXAM: Yes deferred OTHER: Hypogastric tenderness, no rebound tenderness no guarding no rigidity Extremity: COMMON NORMALS: no clubbing, cyanosis or edema and no pedal edema Neuro: COMMON NORMALS: patient oriented x3 Discharge Data Studies Completed and Pending Completed Studies During Hospitalization Category Date Time Status CT chest abd pel w con* Urgent Cat Scan 07/27/21 14:37 Completed Cardiac Stress Test MIBI [Sestamibi Stress Test Request Exams 07/29/21 13:11 Draft ] Routine XR chest 1V portable [id number] Stat Exams 07/27/21 13:16 Completed NM gustavo perf SPECT r/s* [id number] Routine Nuc Med 07/30/21 13:12 Completed CV. echo complete* [id number] Routine Ultrasound 07/28/21 00:15 Completed Pending at discharge Category Date Time Status Fecal Occult Blood [Immunochemical Fecal OCB] Routine Lab 07/27/21 18:38 Uncollected Helicobacter Pylori AG Stool Routine Lab 07/29/21 13:14 Uncollected Radiology Impressions Chest X-Ray 07/27/21 13:16 IMPRESSION: 1. No pulmonary mass or pneumonia. 2. Curvilinear LEFT apical pleural calcification. Chest/Abdomen/Pelvis CT 07/27/21 14:37 IMPRESSION: 1. No acute pulmonary infiltrates. 2. Several subcentimeter noncalcified pulmonary nodules described above. Recommend 6 month follow-up. 3. Mild diffuse fatty infiltration of the liver. 4. Sigmoid diverticulosis. No evidence of acute diverticulitis. 5. Tiny fat-containing umbilical hernia. 6. No acute findings in the abdomen or pelvis. 7. 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 Laboratory Results WBC 4.7 10^3/uL (4.0-10.0) 07/30/21 04:59 RBC 4.40 10^6/uL (4.1-5.3) 07/30/21 04:59 Hgb 14.0 g/dL (11.7-16.6) 07/30/21 04:59 Hct 40.5 % (42.0-52.0) L 07/30/21 04:59 MCV 92.0 fl (80-94) 07/30/21 04:59 MCH 31.8 pg (28.0-34.0) 07/30/21 04:59 MCHC 34.6 g/dL (30.0-36.0) 07/30/21 04:59 RDW 11.5 % (12.1-15.1) L 07/30/21 04:59 Plt Count 207 10^3/cmm (130-400) 07/30/21 04:59 MPV 11.3 fL (7.4-10.4) H 07/30/21 04:59 Neut % (Auto) 50.7 % 07/30/21 04:59 Lymph % (Auto) 33.3 % 07/30/21 04:59 [place] % (Auto) 11.4 % 07/30/21 04:59 Eos % (Auto) 3.6 % 07/30/21 04:59 Baso % (Auto) 0.8 % 07/30/21 04:59 Neut # (Auto) 2.39 10^3/uL (1.8-7.7) 07/30/21 04:59 Lymph # (Auto) 1.6 10^3/uL (0.8-4.8) 07/30/21 04:59 [place] # (Auto) 0.5 10^3/uL (0.2-0.9) 07/30/21 04:59 Eos # (Auto) 0.2 10^3/uL (0.0-0.8) 07/30/21 04:59 Baso # (Auto) 0.0 10^3/uL (0.0-0.1) 07/30/21 04:59 Nucleated RBC % (auto) 0 % 07/30/21 04:59 Nucleated RBCs # 0.0 /100WBC 07/30/21 04:59 PT 13.90 SECONDS (12.1-14.9) 07/27/21 13:45 INR 1.04 (0.8-1.2) 07/27/21 13:45 APTT 25.5 SECONDS (23.9-36.7) 07/27/21 13:45 D-Dimer <= 0.27 ug/mIFEU (0-0.59) 07/27/21 13:45 Sodium 131 mmol/L (136-145) L 07/30/21 04:59 Potassium 3.6 mmol/L (3.5-5.1) 07/30/21 04:59 Chloride 97 mmol/L (98-107) L 07/30/21 04:59 Carbon Dioxide 23 mmol/L (22-29) 07/30/21 04:59 Anion Gap 14.6 (5-19) 07/30/21 04:59 BUN 13 mg/dL (8-23) 07/30/21 04:59 Creatinine 0.7 mg/dL (0.7-1.2) 07/30/21 04:59 GFR Calculation Not Reportable 07/30/21 04:59 Glucose 103 mg/dL (65-115) 07/30/21 04:59 Calculated Osmolality 272 mOsm/kg (285-295) L 07/30/21 04:59 Calcium 9.5 mg/dL (8.5-10.5) 07/30/21 04:59 Total Bilirubin 0.5 mg/dL (0.15-1.2) 07/27/21 13:02 AST 15 U/L (0-40) 07/27/21 13:02 ALT 14 U/L (0-41) 07/27/21 13:02 Alkaline Phosphatase 64 IU/L (40-130) 07/27/21 13:02 Troponin T Baseline 10 ng/L (0-15) 07/27/21 13:02 Troponin T 120 Minute 9.56 ng/L (0-15) 07/27/21 15:37 Delta Troponin T -0.44 ABS# (0-10) L 07/27/21 15:37 Troponin T Hi Sens 6Hr 10.41 ng/L (0-15) 07/27/21 19:09 Troponin T Hi Sens 6Hr Delta 0.41 ng/L (0-12) 07/27/21 19:09 NT-Pro-B Natriuret Pep 101 pg/mL (0-125) 07/27/21 13:02 Total Protein 6.8 g/dL (6.6-8.7) 07/27/21 13:02 Albumin 4.2 g/dL (3.5-5.2) 07/27/21 13:02 Globulin 2.6 g/dL (1.3-4.6) 07/27/21 13:02 Triglycerides 84 mg/dL (0-150) 07/28/21 05:20 Cholesterol 163 mg/dL (0-200) 07/28/21 05:20 LDL Cholesterol, Calc 112 mg/dL (50-129) 07/28/21 05:20 HDL Cholesterol 34 mg/dL (60-100) L 07/28/21 05:20 LDL/HDL Ratio 3.29 RATIO (0.00-3.22) H 07/28/21 05:20 Cholesterol/HDL Ratio 4.79 mg/dL (1.0-5.00) 07/28/21 05:20 Lipase 29 U/L (13-60) 07/27/21 13:02 TSH 1.27 uIU/mL (0.27-4.20) 07/28/21 05:20 Urine Color Yellow (Yellow) 07/28/21 09:50 Urine Appearance Clear (CLEAR) 07/28/21 09:50 Urine pH 5 (5-7) 07/28/21 09:50 Ur Specific [place] 1.020 (1.005-1.030) 07/28/21 09:50 Urine Protein Neg (Negative) 07/28/21 09:50 Urine Glucose (UA) Norm (Normal) 07/28/21 09:50 Urine Ketones 1+ (Negative) H 07/28/21 09:50 Urine Blood Neg (Negative) 07/28/21 09:50 Urine Nitrate Negative (Negative) 07/28/21 09:50 Urine Bilirubin Neg (Negative) 07/28/21 09:50 Urine Urobilinogen Norm mg/dL (Negative) 07/28/21 09:50 Ur Leukocyte Esterase Negative (Negative) 07/28/21 09:50 Influenza Type A Ag Negative (Negative) 07/27/21 13:53 Influenza Type B Ag Negative (Negative) 07/27/21 13:53 Vitals Last Vital Signs Temp 98.6 F 07/30/21 11:16 Pulse 74 07/30/21 11:16 Resp 17 07/30/21 11:16 BP 150/69 07/30/21 11:16 Pulse Ox 91 07/30/21 11:16 Discharge Plan Discharge Patient Disposition: Home Condition: Stable Prescriptions: New Protonix 40 mg tablet,delayed release (DR/EC) 40 mg PO DAILY Qty: 30 3RF amlodipine 10 mg tablet 10 mg PO DAILY Qty: 30 3RF Coreg 6.25 mg tablet 6.25 mg PO BID Qty: 60 3RF Rx Instructions: must administer with a meal/food Continued sertraline 100 mg Tablet 100 mg PO DAILY 0RF gabapentin 300 mg Capsule 300 mg PO TID 0RF Osteo Bi-Flex 250-200 mg Tablet 2 tab PO TID 0RF Rx Instructions: give after food/meal Men's 50 Plus Daily Formula 400-20-370 mcg Tablet 1 tab PO DAILY 0RF Discontinued carvedilol [Coreg] 25 mg Tablet 25 mg PO BID 0RF Rx Instructions: must administer with a meal/food meloxicam 7.5 mg Tablet 7.5 mg PO DAILY 0RF Discharge Orders: Discharge Order (Routine); Ordered 07/30/21 Ordered By: Cordell Rutledge Referrals: Kalyani De Jesus MD [Other] - 08/01/21 9:00 am Gregory Schneider MD [Physician] - 2 weeks Discharge Diet: Regular Discharge Activity: Resume usual activity Patient Instructions: Amlodipine (By mouth) (Hypertenipine-2.5, Norvasc), Pantoprazole (By mouth) (Protonix), Chest Pain Stoplight, Opioid Safety Discharge Attestations Time Spent in Discharge Care*: greater than 30 min Specific Discharge Activities: educating patient, educating and/or supporting family/caregiver, discussing with pcp/other providers, discussing with special education case manager/social workers/dc planners, documenting/other paperwork and evaluating patient/reviewing data Quality Metrics Clinical Quality Measures [ No reported AMI, CVA or VTE this stay] Coding Level of Care Code Acute Chg FW DC note Exam Comprehensive Diagnoses Chest pain R07.9 HTN (hypertension) I10
--- NOTE | 2021-07-30 13:12 | NMCV_ITS ---
NM gustavo perf SPECT r/s* [id number] Vikash Perea Age: 71 Gender: M : 1950 Exam Date: 07/30/2021 07:13 Ordering Phys: Cordell Rutledge MD Technologist: ERICA Correa Exam Location: [facility] Indications: CHEST PAIN STRESS TEST Please see separate stress test report in [facility] for full findings IMAGE PROTOCOL Rest/Stress 1 Lexiscan Day Radiopharmaceutical Dose (mCi) Administration Site Administered by Rest: Tc-99m 10.9 IV ERICA Mahajan Sestamibi Stress:Tc-99m 32.6 IV ERICA Mahajan Sestamibi Rest: 30-Jul-2021 60 Discovery 630 Stress: 30-Jul-2021 30 Discovery 630 0.4mg Lexiscan. Supine position only as patient was unable to lay prone. SPECT RESULTS Technical Quality: Excellent Raw Data Analysis: Normal Image Corrections: No attenuation or motion correction applied Summed Stress Score: 0 Summed Rest Score: 0 Summed Difference Score: 0 PERFUSION FINDINGS SPECT images demonstrate homogeneous tracer distribution throughout the myocardium. FUNCTIONAL RESULTS (calculated via Gated SPECT) Stress Image LV EF (%): 75 Stress EDV (mL):68 TID: 1.13 Stress ESV (mL):17 FUNCTIONAL FINDINGS: There is normal left ventricular systolic function. IMPRESSIONS 1. Normal myocardial perfusion imaging with no evidence of ischemia 2. LV systolic function is normal Don Guillaume MD (Electronically Signed) Final Date: 30 July 2021 10:42 S
== END 2021-07-30 15:02 | disposition home or self-care (01) ==
LOC: ER 17:32 → MEDSURG 18:11
PROVIDERS: Admitting Provider Internal Medicine; Emergency Provider Emergency Medicine; Visit Provider Internal Medicine
DX: R07.9 Chest pain, unspecified (principal); I10 Essential (primary) hypertension; R00.1 Bradycardia, unspecified; Z87.891 Personal history of nicotine dependence
CPT/HCPCS: 36415; 71045; 71260; 74177; 78452; 80048; 80053; 80061; 81003; 83690; 83880; 84443; 84484; 85025; 85378; 85610; 85730; 87804; 93005; 93017; 93306; 96365; 96372; 96375; 99285; A9500; C9113; G0378; J0280; J0696; J1650; J2785; J7030; Q9967